=== PATIENT | male | born 1955 ===

== ENCOUNTER 2021-01-29 16:29 | Outpatient (CLI) | payer OTHER | END 2021-01-29 16:35 | disposition home or self-care (01) | LOC: RAD 16:29 | DX: M25.472 Effusion, left ankle (principal) ==

== ENCOUNTER 2022-01-10 09:44 | Outpatient (CLI) | payer OTHER | END 2022-01-10 10:00 | disposition home or self-care (01) | LOC: RAD 09:44 | PROVIDERS: ATTEND Specialist | DX: M41.26 Other idiopathic scoliosis, lumbar region (principal); M51.36 Other intervertebral disc degeneration, lumbar region; M17.0 Bilateral primary osteoarthritis of knee ==

== ENCOUNTER 2022-01-10 12:16 | Outpatient (CLI) | payer OTHER | END 2022-01-10 12:23 | disposition home or self-care (01) | LOC: NUCLEAR 12:16 | PROVIDERS: ATTEND Specialist | DX: M51.36 Other intervertebral disc degeneration, lumbar region (principal) ==